=== PATIENT | male | born 1985 | race Caucasian/White ===

== ENCOUNTER 2018-10-20 18:30 | Emergency (ER) | payer BC ==
[~2018-10-20] VITALS: Ht 188 cm; Wt 165.0 kg
[2018-10-20 18:50] VITALS: Ht 188 cm; Wt 165.0 kg
[2018-10-20] MEDS ORDERED: LIPITOR20 MG PO (18:53)
[2018-10-20 20:02] LABS: BASOPHILS 0.1 % (0-2); EOSINOPHILS 2.1 % (0-7); HEMATOCRIT 40.4 % (42.0-54.0); HEMOGLOBIN 13.2 g/dL (13.5-17.5); IMMATURE GRANULOCYTES 0.4 % (0-5); LYMPHOCYTES 18.1 % (15-50); MCH 28.8 pg (26.0-34.0); MCHC 32.7 g/dL (31.0-37.0); MEAN PLATELET VOLUME 9.4 fL (7.4-10.4); MONOCYTES 7.1 % (2-11); NEUTROPHILS 72.2 % (40-80); PLATELET COUNT 293 10x3/uL (130-400); RBC 4.59 10x6/uL (4.20-6.10); RDW 15.1 % (11.5-14.5); WBC 11.2 10x3/uL (4.8-10.8)
[2018-10-20 20:17] LABS: ALBUMIN 3.4 g/dL (3.4-5.0); ALKALINE PHOSPHATASE 91 U/L (46-116); ALT (SGPT) 38 U/L (10-68); BILIRUBIN - TOTAL 0.16 mg/dL (0.2-1.3); CALC OSMOLALITY 282 mosm/kg (275-300); CALCIUM 9.1 mg/dL (8.5-10.1); CARBON DIOXIDE 29.3 mmol/L (21.0-32.0); CHLORIDE - SERUM 104 mmol/L (98-107); CREATININE - SERUM 0.8 mg/dL (0.6-1.3); GLUCOSE 112 mg/dL (74-106); POTASSIUM - SERUM 4.1 mmol/L (3.5-5.1); PROTEIN - SERUM 7.5 g/dL (6.4-8.2); SODIUM 141 mmol/L (136-145); UREA NITROGEN 16 mg/dL (7-18); eGFR NON AFRICAN AMERICAN > 90 mL/min (90-120)
[2018-10-20 20:28] LABS: CKMB 2.1 U/L (0.0-3.6); CREATINE KINASE 559 UL (21-232); PRO BNP 11 pg/mL (0-125); TROPONIN-I < 0.017 ng/mL (0.000-0.060)
[2018-10-20] MEDS ORDERED: HYDROCHLOROTHIA25 MG PO (22:15)
[2018-10-20 22:28] VITALS: BP 138/79
== END 2018-10-20 22:28 | disposition home or self-care (01) ==
LOC: D.ER 18:30
PROVIDERS: Family Medicine
DX: R60.9 Edema, unspecified (principal); R53.1 Weakness; Z91.19 Patient's noncompliance with other medical treatment and regimen

== ENCOUNTER → 2019-07-23 07:42 | Outpatient (CLI) | payer MEDICAID ==
[2018-10-20 18:50] VITALS: BMI 46.7
[~2019-07-23 07:42] MED LIST: HYDROCHLOROTHIA25 MG PO; LIPITOR20 MG PO
== END | disposition home or self-care (01) ==
LOC: D.MRI 07:42
PROVIDERS: ATTEND Family Medicine
DX: M25.562 Pain in left knee (principal)